=== PATIENT | male | born 1985 | race Caucasian/White ===

== ENCOUNTER 2017-12-17 14:11 | Emergency (ER) | payer OTHER ==
--- NOTE | 2017-12-17 15:04 | EDPHY ---
General - History Smoking Status: Never smoked Time Seen by Provider: 12/17/17 14:47 Narrative: CHIEF COMPLAINT: Possible hydrofluoric acid exposure HISTORY OF PRESENT ILLNESS: Patient presents by private vehicle with complaints of possible hydrofluoric acid exposure. He reports working with chemicals in his usual fashion earlier this morning, around 10:00a.m. Shortly after this, he began to feel some burning in his eyes and burning in his throat. He walked outside and the symptoms spontaneously resolved within 5-10 minutes. He did not irritate his eyes. He is not taking medications. Works as a department store general manager at a [employer] is concerned is that he was exposed to hydrofluoric acid. There was no liquid exposure. This was all inhaled. He states that he is completely asymptomatic at this time and feels fine but "I just want to make sure." He did not irrigate his eyes. He has not take any medications. He is completely asymptomatic at this time with no associated complaints or modifying factors. REVIEW OF SYSTEMS: 10 systems were reviewed and negative with the exception of the elements mentioned in the history of present illness. PCP: None locally. SPECIALISTS: None PAST MEDICAL HISTORY: Denies any medical diagnoses PAST SURGICAL HISTORY: No surgical history SOCIAL HISTORY: Nonsmoker. Lives independently. Works as a department store general manager FAMILY HISTORY: Noncontributory EXAMINATION: General Appearance: Alert, no distress. Well appearing. Head: normocephalic, atraumatic Eyes: Pupils equal and round, no conjunctival pallor or injection. pH is 7-8 ENT, Mouth: Mucous membranes moist. No erythema or edema. Airway widely patent. No trismus. No drooling. Neck: Normal inspection, supple, non-tender Respiratory: Lungs are clear to auscultation no wheezing rhonchi or crackles Cardiovascular: Regular rate and rhythm Gastrointestinal: Abdomen is soft and nontender Back: non-tender, no bony abnormalities Neurological: A&O, nonfocal, normal gait Skin: Warm and dry, no rash. no erythema Extremities: Nontender, no pedal edema Psychiatric: Mood and affect normal DIFFERENTIAL DIAGNOSES: Including but not limited to chemical exposure, chemical conjunctivitis, chemical pharyngitis, pulmonary edema MDM: 2:45 p.m. Possible exposure to hydrofluoric acid inhaled. Patient was symptomatic earlier but asymptomatic at this time. No complaints of any kind at this time. We will consult poison Control for further recommendation. 3:[address] Quesada has personally discussed the case with poison Control. The recommendation is that no action is necessary given that the patient's are asymptomatic. I have re-evaluated the patient discussed this with them. He is comfortable this plan. We discussed discharge home with return emergency department cautions for any return of symptoms including eye burning, visual disturbance, sore throat, chest pain, shortness of breath or difficulty breathing. He is comfortable this plan. Discharged home stable condition. SUPERVISION: Patient was independently examined, but I discussed the case with my secondary supervising physician Dr. Quesada CONSULTATION: Poison Control (Taye Gómez) - Objective Vital Signs: Initial Vital Signs Temperature (C) 36.6 C 12/17/17 14:24 Heart Rate 56 L 12/17/17 14:24 Respiratory Rate 16 12/17/17 14:24 Blood Pressure 138/74 H 12/17/17 14:24 O2 Sat (%) 95 12/17/17 14:24 O2 Delivery Mode Room Air Allergies/Adverse Reactions: amoxicillin [From Augmentin] Allergy (Verified 12/17/17 14:24) clavulanic acid [From Augmentin] Allergy (Verified 12/17/17 14:24) Home Medications: Medication Instructions Recorded NK [No Known Home Meds] 12/17/17 Departure - Departure Disposition: Home, Routine, Self-Care Clinical Impression: Hazardous chemical suspected exposure Condition: Good Instructions: [facility] (ED) Additional Instructions: 1. Follow up with your worker's compensation and occupational health account group supervisor 2. Return to emergency department for return of symptoms or any shortness of breath or burning of the skin Referrals: Issac Loomis MD [Medical Doctor] - As per Instructions Physician,Emergency DeptMD [Medical Doctor] - As per Instructions Stand Alone Forms: Work Comp Follow Up
[2017-12-17 15:21] VITALS: BP 125/82
== END 2017-12-17 15:21 | disposition home or self-care (01) ==
DX: Z77.098 Contact with and (suspected) exposure to other hazardous, chiefly nonmedicinal, chemicals (principal); H57.10 Ocular pain, unspecified eye; R07.0 Pain in throat